=== PATIENT | female | born 1950 | race Caucasian/White ===

== ENCOUNTER → 2016-12-26 | Outpatient (CLI) | payer MEDICARE, BC ==
--- NOTE | 2016-12-26 15:09 | RADRPT ---
PROCEDURE: XR AP pelvis/right hip. CLINICAL INDICATION: Hip pain TECHNIQUE: AP pelvis/AP and lateral right hip views performed COMPARISON: No prior studies are available for comparison. FINDINGS: There is moderate right hip osteoarthrosis. This is associated with joint space narrowing, subchondr al sclerosis and osteophytosis. There is normal mineralization. No fractures or osseous lesions ar e identified. The soft tissues are unremarkable. There are calcified fibroids in the pelvis. There are surgical clips in the left groin. IMPRESSION: Moderate right hip osteoarthrosis. RPTAT: [facility] .Kimani Hwang MD, MD Date Time Electronically viewed and signed by .Kimani Hwang MD, on 12/26/2016 15:09 .B/
== END | disposition home or self-care (01) ==
LOC: HKI 13:25
PROVIDERS: ATTEND Orthopaedic Surgery
DX: M16.11 Unilateral primary osteoarthritis, right hip (principal); M25.551 Pain in right hip
CPT/HCPCS: 73502; G0463